=== PATIENT | male | born 1955 | race Caucasian/White ===

== ENCOUNTER 2018-07-17 07:09 | Emergency (ER) | payer BC, MEDICARE ==
[2018-07-17 07:38] VITALS: BP 133/86
--- NOTE | 2018-07-17 07:56 | UC ---
Skin Complaint HPI - HPI Summary HPI Summary: Patient presents to urgent care with a chief hives on his abdomen, scalp at hairline, and right posterior leg. Patient states his been approximately 2 weeks. Patient has a topical steroid ointment that he's use that has been helping. Patient states he also takes Benadryl help with itching. Patient states it's worse after showers. Patient denies fevers or chills. Patient states he had something similar happen approximately 6 month ago and saw his PCP. Unknown cause. Patient was working on the garden. No facial swelling difficulty swallowing shortness of breath or wheeze. Patient's medications reviewed this visit. - History of Current Complaint Chief Complaint: UCSkin Time Seen by Provider: 07/17/18 07:48 Stated Complaint: SKIN - RASH Hx Obtained From: Patient Pain Intensity: 0 - Allergy/Home Medications Allergies/Adverse Reactions: Allergies Allergy/AdvReac Type Severity Reaction Status Date / Time Sulfa (Sulfonamide Allergy Hives Verified 07/17/18 07:29 Antibiotics) Home Medications: Home Medications Desoximetasone 15 gm TP DAILY 07/17/18 [History Confirmed 07/17/18] Enalapril/Hydrochlorothiazide [Enalapril Maleate/Hydroch 10-25 mg] 1 tab PO DAILY 07/17/18 [History Confirmed 07/17/18] NIFEdipine ER TAB* [Procardia Xl TAB*] 90 mg PO DAILY 07/17/18 [History Confirmed 07/17/18] Simvastatin [Zocor] 40 mg PO DAILY 07/17/18 [History Confirmed 07/17/18] diphenhydrAMINE HCl [Benadryl Allergy 25 MG CAP] 1 - 2 tab PO Q4H PRN 07/17/18 [ History Confirmed 07/17/18] PMH/Surg Hx/FS Hx/Imm Hx Previously Healthy: Yes - Surgical History Surgical History: Yes Surgery Procedure, Year, and Place: knee - Family History Known Family History: Positive: Non-Contributory - Social History Occupation: Retired Lives: With Family Alcohol Use: None Substance Use Type: None Smoking Status (MU): Never Smoked Tobacco Review of Systems All Other Systems Reviewed And Are Negative: Yes Constitutional: Positive: Negative Skin: Positive: Rash Eyes: Positive: Negative ENT: Positive: Negative Respiratory: Positive: Negative Cardiovascular: Positive: Negative Gastrointestinal: Positive: Negative Physical Exam - Summary Physical Exam Summary: Vital Signs Reviewed: Yes A+Ox3, no distress Eyes: Conjunctiva Clear, MARCO. EOM intact and full ENT: Hearing grossly normal mmoist, uvula midline, no exudate, no erythema Neck: Positive: Supple Respiratory: Positive: No respiratory distress, No accessory muscle use + CTA throughout no w/r Cardiovascular: RRR nl s1, s2 no m/r CBT <2 sec abd soft + BS nt/nd no guarding, no distension Musculoskeletal Exam: HOBBS x 4 without difficulty Strength Intact, ROM Intact Neurological: Positive: Alert, + sensation throughout Psychological: Positive: Normal Response To Family Skin: Positive: Pt with apparent contact dermatitis - raised, macular patch right lower abd, posterior right upper leg. no lesions noted in hairline. + puritic No drainage, vesicles, non tender Triage Information Reviewed: Yes Vital Signs: Initial Vital Signs Temp 97.5 F 07/17/18 07:32 Pulse 79 07/17/18 07:32 Resp 16 07/17/18 07:32 BP 133/86 07/17/18 07:32 Pulse Ox 95 07/17/18 07:32 Course/Dx - Course Course Of Treatment: Patient with a rash on his posterior leg right lower abdomen for the last 2 weeks. Patient states Benadryl and steroid ointment helps. Worse after showers. Patient was working his garden preceding this. Patient without any respiratory complaints. Patient's vital signs reviewed. Patient with apparent contact dermatitis appearing rash on his abdomen posterior leg. Discussed with patient prednisone taper. Benadryl or Pepcid. Avoid heat and NSAIDs. Encourage patient to UC gentle soap and dry completely. Follow with PCP with dermatology. Referral information given. Patient has comfortable agreement with plan. Strict return precautions discussed. - Diagnoses Provider Diagnosis: Rash Discharge - Sign-Out/Discharge Documenting (check all that apply): Patient Departure All imaging exams completed and their final reports reviewed: No Studies - Discharge Plan Condition: Stable Disposition: HOME Prescriptions: predniSONE TAB* [Deltasone 20 MG TAB*] 20 mg PO DAILY #13 tab Patient Education Materials: Acute Rash (ED), Contact Dermatitis (ED) Referrals: [facility] [Provider Group] ([place]: [address] [place] [address] [phone]) Julian Santos MD [Primary Care Provider] - Additional Instructions: Take prednisone exactly as prescribed until gone - starting today - Okay to take Benadryl (1-2 tablets) every 6 hours as needed. This medication may cause drowsiness - do NOT drive, operate machinery or drink alcohol while taking Benadryl -Okay to take pepcid 20mg daily for itching -Avoid getting over heated (hot showers, hot tubs, exercise) for at least 48 hours - Try to avoid aspirin, NSAIDs (Motrin, Aleve, Naprosyn) for 2-3 days - Okay to apply cool compresses to the area of injury -Contact your doctor to schedule a follow-up appointment. you have also been given the contact information for a prototype technician. okay to call to schedule a follow-up appointment - okay to request the [place] office - Billing Disposition and Condition Condition: STABLE Disposition: Home
== END 2018-07-17 08:18 | disposition home or self-care (01) ==
LOC: UCCORT 07:09
DX: R21 Rash and other nonspecific skin eruption (principal); Z88.2 Allergy status to sulfonamides
CPT/HCPCS: 99212; G0463

== ENCOUNTER 2018-07-31 18:52 | Emergency (ER) | payer MEDICARE ==
[2018-07-31 19:33] VITALS: BP 132/85
--- NOTE | 2018-07-31 19:51 | UC ---
Skin Complaint HPI - HPI Summary HPI Summary: Pt presents with c/o "itchy" rash that began 2 weeks ago. Pt was seen here on and dx with contact dermatitis and given prednisone. Pt states rash improved with use of prednisone but has returned since discontinuing it. Pt denies any known contact to allergen. - History of Current Complaint Chief Complaint: UCSkin Time Seen by Provider: 07/31/18 19:30 Stated Complaint: SKIN CONCERN - RASH ALL OVER Hx Obtained From: Patient Onset/Duration: Sudden Onset, Lasting Weeks, Still Present Skin Exposure Onset/Duration: Weeks Ago Timing: Constant Onset Severity: Moderate Current Severity: Moderate Pain Intensity: 0 Location: Diffuse - low back, left posterior thigh, abdomen Character: Pruritus, Redness, Raised Aggravating Factor(s): Nothing Alleviating Factor(s): Antihistamines, Other - prednisone Associated Signs & Symptoms: Positive: Rash Related History: Possible Reaction to: Environmental Exposure - was gardening prior to initial outbreak of rash - Allergy/Home Medications Allergies/Adverse Reactions: Allergies Allergy/AdvReac Type Severity Reaction Status Date / Time Sulfa (Sulfonamide Allergy Hives Verified 07/31/18 19:33 Antibiotics) Home Medications: Home Medications Desoximetasone [Topicort] 0.25 % EX BID 07/31/18 [History Confirmed 07/31/18] PMH/Surg Hx/FS Hx/Imm Hx Previously Healthy: Yes Cardiovascular History: Cardiac Disease, Hypertension - Surgical History Surgical History: Yes Surgery Procedure, Year, and Place: knee - Family History Known Family History: Positive: Non-Contributory - Social History Occupation: Retired Lives: With Family Alcohol Use: None Substance Use Type: None Smoking Status (MU): Never Smoked Tobacco Have You Smoked in the Last Year: No - Immunization History Vaccination Up to Date: Yes Review of Systems All Other Systems Reviewed And Are Negative: Yes Constitutional: Positive: Negative Skin: Positive: Rash Eyes: Positive: Negative ENT: Positive: Negative Respiratory: Positive: Negative Cardiovascular: Positive: Negative Gastrointestinal: Positive: Negative Genitourinary: Positive: Negative Motor: Positive: Negative Neurovascular: Positive: Negative Musculoskeletal: Positive: Negative Neurological: Positive: Negative Psychological: Positive: Negative Is Patient Immunocompromised?: No Physical Exam Triage Information Reviewed: Yes Appearance: Well-Appearing Vital Signs: Initial Vital Signs Temp 98.8 F 07/31/18 19:25 Pulse 107 07/31/18 19:25 Resp 17 07/31/18 19:25 BP 132/85 07/31/18 19:25 Pulse Ox 97 07/31/18 19:25 Vital Signs Reviewed: Yes Eye Exam: Normal ENT Exam: Normal Dental Exam: Normal Neck exam: Normal Respiratory Exam: Normal Cardiovascular Exam: Normal Abdominal Exam: Other - rash on abdomen Musculoskeletal Exam: Normal Neurological Exam: Normal Psychological Exam: Normal Skin Exam: Other Skin: Positive: Rashes - diffuse pin prcik, raised mild erythematous rash, low back upper back, abdomen, and posteror left thigh. Pt also c/o nuring feeling at base of skull. no rash appreciated, skin at base of skull is mildly erythematous. Course/Dx - Differential Diagnoses - Skin Complaint Differential Diagnoses: Contact Dermatitis, Urticaria, Varicella Zoster - Diagnoses Provider Diagnosis: Rash and nonspecific skin eruption Discharge - Sign-Out/Discharge Documenting (check all that apply): Patient Departure All imaging exams completed and their final reports reviewed: No Studies - Discharge Plan Condition: Stable Disposition: HOME Prescriptions: Cetirizine* [ZyrTEC 10 MG TAB*] 10 mg PO DAILY #7 tab predniSONE TAB* [Deltasone 10 MG TAB*] 40 mg PO DAILY #20 tab Patient Education Materials: Acute Rash (ED) Referrals: Raul Vazquez MD [Medical Doctor] - As Soon As Possible Katie Eagle MD [Medical Doctor] - As Soon As Possible Shade Yusuf MD [Medical Doctor] - As Soon As Possible Carolyn Dyson [Medical Doctor] - As Soon As Possible Julian Santos MD [Primary Care Provider] - As Soon As Possible - Billing Disposition and Condition Condition: STABLE Disposition: Home
== END 2018-07-31 20:00 | disposition home or self-care (01) ==
LOC: UCCORT 18:52
DX: R21 Rash and other nonspecific skin eruption (principal); I11.9 Hypertensive heart disease without heart failure; Z88.2 Allergy status to sulfonamides
CPT/HCPCS: 99212; G0463

== ENCOUNTER 2018-08-08 14:45 | Emergency (ER) | payer MEDICARE ==
--- OUTSIDE RECORDS SUMMARY | 2018-08-08 15:00 | XMS REPORT | Continuity of Care Document ---
:1955 External Reference #:[id number] Author Name Gianna Tadeo Care Team Providers Name Role Phone Julian Santos III, MD Primary Care Physician Unavailable Payers Date Identification Numbers Payment Provider Subscriber Effective: Policy Number: [id number] Medicare Blue Ppo Alejandro Muniz 2018 PayID: [id number] [address] [place] [id number] Effective: 2010 Policy Number: [id number] [facility] Alejandro Muniz Expires: 2012 PayID: [id number] [facility] [id number] [place] [id number] Expires: 2010 Policy Number: [id number] [facility] Ppo Alejandro Muniz PayID: [id number] [facility] [id number] [place] [address] Advance Directives Description No Information Available Problems Active Problems Provider Date Benign essential hypertension Julian Santos M.D. Onset: 10/28/2010 Pure hypercholesterolemia uJlian Santos M.D. Onset: 10/28/2010 Impaired fasting glycaemia Julian Santos M.D. Onset: 10/28/2010 Allergic rhinitis Julian Santos M.D. Onset: 10/30/2011 Essential hypertension Julian Santos M.D. Onset: 01/28/2015 Family History Date Family Member(s) Observation Comments General Hypertension General Heart Disease General Diabetes Father Heart Disease Father Hypertension Father due to COPD () - age 73; (+) smoker. (+) CAD, NM age 65. (+) HTN Mother Hypertension Mother Heart Disease Mother Diabetes Mother due to Sudden () - age 73; cause uncertain. (+) HTN Mother due to Diabetes () First Brother Hypertension First Sister Hypertension Second Sister Hypertension Social History Type Date Description Comments Sex Unknown Marital Status Lives With Spouse Occupation [employer] work Tobacco Use Start: Unknown Never Smoked Cigarettes ETOH Use 10/29/2012 Denies alcohol use Tobacco Use Start: Unknown Patient has never smoked Recreational Drug Use Denies Drug Use Smoking Status Reviewed: 08/05/18 Patient has never smoked Exercise Type/Frequency Active at work Allergies, Adverse Reactions, Alerts Active Allergies Reaction Severity Comments Date Sulfa hives 01/15/2007 Bee Sting swelling and SOB 10/28/2010 Iodine rash 05/01/2011 Medications Active Medications SIG Qnty Indications Ordering Date Provider Desoximetasone apply once a day 60gm Julian Westfall 03/13/2018 0.25% Cream for up to 2 Monse Santos weeks as needed Nifedipine ER Osmotic Take 1 Tablet 90tabs Julian Westfall 04/26/2015 Release Daily Monse Santos 90mg Tablets ER 24HR Enalapril Take 1 Tablet 90tabs Julian Westfall 08/23/2010 Maleate/Hydrochlorothia Daily Monse Santos zide 10-25mg Tablets Simvastatin Take 1 Tablet AT 90tabs Julian Westfall 07/30/2007 40mg Tablets Bedtime Monse Santos Benadryl Allergy 1 tab by mouth Unknown 25mg every night at Tablets bedtime Fluad Unknown 0.5ml Ayleen Prednisone Rochelle Hsieh, 20mg Tablets MD Prednisone Unknown 10mg Tablets Cetirizine HCL take 1 tablet by Unknown 10mg Tablets mouth once daily Mucinex D Max Strength 1 tab a day as Unknown needed 120-1200mg Tablets ER 12HR Acetaminophen Extra as needed Unknown Strength 500mg Capsules History Medications Nifedipine ER Osmotic take 1 tablet by 30tabs Kari Vu, 02/15/2011 - mouth once daily Monse 04/26/2015 90mg Tablets ER 24HR Physical Therapy pt evaluation and 719.46 Julian Westfall 02/14/2010 - treatment for r Danielle, M.D. 08/26/2010 knee pain Desoximetasone apply bid prn 60GM Julian Westfall 07/27/2009 - 0.25% psoriasis Monse Santos 03/13/2018 Cream Vaseretic 1 po qd 90tabs Julian Westfall 07/22/2009 - 10-25mg Tablets Monse Santos 10/28/2010 Vaseretic 1 po qd 90tabs Julian Westfall 07/22/2008 - 10/12.5mg Monse Santos 07/22/2009 Tablets Vasoretic one po qd 90units Julian E. - 03/19 Monse Santos 07/22/2008 Procardia XL 1 PO qd 90tabs Julian E. - 90mg Tablets Monse Santos 02/15/2011 ER 24HR Lipitor 1Tab PO hs 30tabs Julian Katz. - 20mg Tablets Monse Santos 08/05/2007 Immunizations CPT Code Status Date Vaccine Lot # [id number] Given 03/13/2018 Pneumococcal Conjugate Vaccine 13 Valent For [id number] Intramuscular Use [id number] Given 01/15/2017 Influenza Virus Vaccine, Quadrivalent, Split, Preservative Free 56539 Given 01/14/2016 Influ Virus Vaccine, Quadrivalent, Split Virus, [place] [id number] Given 01/15/2015 Influenza Virus Vaccine, Quadrivalent, Split, Preservative Free [id number] Given 01/27/2014 Zoster (Zostavax) [id number] 55511 Given 01/16/2014 Flu Vaccine Split Virus Preservative Free For Indiv [id number] Older [id number] Given 02/14/2013 Fluzone High Dose 38078 Given 10/28/2010 Tdap - Tetanus/Diptheria/Acellular Pertussis [id number] Vital Signs Date Vital Result Comment 08/05/2018 3:47pm Height 65.5 inches 5'5.50" Weight 214.38 lb Heart Rate 90 /min BP Systolic 134 mmHg BP Diastolic 85 mmHg Body Temperature 96.0 F O2 % BldC Oximetry 96 % BMI (Body Mass Index) 35.1 kg/m2 03/13/2018 10:19am Height 65.5 inches 5'5.50" Weight 210.00 lb Heart Rate 98 /min BP Systolic Sitting 110 mmHg BP Diastolic Sitting 72 mmHg O2 % BldC Oximetry 94 % BMI (Body Mass Index) 34.4 kg/m2 03/30/2017 8:58am Height 65 inches 5'5" Weight 218.00 lb Heart Rate 90 /min BP Systolic Sitting 132 mmHg BP Diastolic Sitting 76 mmHg Respiratory Rate 20 /min Pain Level 0 BMI (Body Mass Index) 36.3 kg/m2 03/23/2017 8:49am Height 65 inches 5'5" Weight 218.38 lb Heart Rate 82 /min BP Systolic Sitting 120 mmHg BP Diastolic Sitting 66 mmHg Respiratory Rate 18 /min Body Temperature 98.2 F Pain Level 0 BMI (Body Mass Index) 36.3 kg/m2 02/01/2017 3:25pm Height 65 inches 5'5" Weight 213.00 lb Heart Rate 73 /min BP Systolic Sitting 124 mmHg BP Diastolic Sitting 80 mmHg Body Temperature 97.1 F O2 % BldC Oximetry 96 % BMI (Body Mass Index) 35.4 kg/m2 02/01/2016 3:06pm Height 66 inches 5'6" Weight 212.00 lb Heart Rate 84 /min BP Systolic Sitting 136 mmHg BP Diastolic Sitting 80 mmHg Body Temperature 98.7 F O2 % BldC Oximetry 97 % BMI (Body Mass Index) 34.2 kg/m2 01/28/2015 3:46pm Height 66 inches 5'6" Weight 208.00 lb Heart Rate 90 /min BP Systolic Sitting 130 mmHg BP Diastolic Sitting 86 mmHg Body Temperature 97.5 F O2 % BldC Oximetry 98 % BMI (Body Mass Index) 33.6 kg/m2 01/27/2014 3:37pm Height 66 inches 5'6" Weight 214.75 lb Heart Rate 95 /min BP Systolic Sitting 100 mmHg BP Diastolic Sitting 66 mmHg Body Temperature 97.7 F BMI (Body Mass Index) 34.7 kg/m2 08/12/2013 1:16pm Weight 209.50 lb Heart Rate 74 /min BP Systolic Sitting 124 mmHg BP Diastolic Sitting 68 mmHg Body Temperature 97.9 F 05/01/2013 3:56pm Weight 215.00 lb Heart Rate 90 /min BP Systolic Sitting 122 mmHg BP Diastolic Sitting 78 mmHg 10/29/2012 3:40pm Height 66 inches 5'6" Weight 210.00 lb Heart Rate 92 /min BP Systolic Sitting 124 mmHg BP Diastolic Sitting 78 mmHg BMI (Body Mass Index) 33.9 kg/m2 05/01/2012 2:53pm Height 65.75 inches 5'5.75" Weight 217.00 lb Heart Rate 90 /min BP Systolic Sitting 136 mmHg BP Diastolic Sitting 88 mmHg BMI (Body Mass Index) 35.3 kg/m2 10/30/2011 3:52pm Height 65.75 inches 5'5.75" Weight 217.50 lb Heart Rate 72 /min BP Systolic Sitting 120 mmHg BP Diastolic Sitting 84 mmHg BMI (Body Mass Index) 35.4 kg/m2 05/01/2011 3:47pm Height 66.5 inches 5'6.50" Weight 219.00 lb Heart Rate 80 /min BP Systolic Sitting 118 mmHg BP Diastolic Sitting 70 mmHg BMI (Body Mass Index) 34.8 kg/m2 11/25/2010 10:47am BP Systolic 110 mmHg BP Diastolic 76 mmHg 10/28/2010 10:26am Weight 218.00 lb Heart Rate 84 /min BP Systolic Sitting 116 mmHg BP Diastolic Sitting 70 mmHg 02/14/2010 4:54pm Height 67.5 inches 5'7.50" Weight 228.00 lb Heart Rate 80 /min BP Systolic Sitting 114 mmHg BP Diastolic Sitting 84 mmHg BMI (Body Mass Index) 35.2 kg/m2 07/27/2009 9:05am Height 67.5 inches 5'7.50" Weight 229.00 lb Heart Rate 68 /min BP Systolic Sitting 130 mmHg BP Diastolic Sitting 80 mmHg BMI (Body Mass Index) 35.3 kg/m2 01/20/2009 3:57pm Height 66.5 inches 5'6.50" Weight 227.00 lb Heart Rate 82 /min BP Systolic Sitting 132 mmHg BP Diastolic Sitting 80 mmHg BMI (Body Mass Index) 36.1 kg/m2 07/22/2008 9:06am Height 66.5 inches 5'6.50" Weight 230.00 lb Heart Rate 72 /min BP Systolic Sitting 112 mmHg BP Diastolic Sitting 70 mmHg BMI (Body Mass Index) 36.6 kg/m2 01/16/2008 4:03pm Height 66 inches 5'6" Weight 232.00 lb Heart Rate 80 /min BP Systolic Sitting 126 mmHg BP Diastolic Sitting 88 mmHg BMI (Body Mass Index) 37.4 kg/m2 07/17/2007 8:59am Height 66 inches 5'6" Weight 233.00 lb Heart Rate 72 /min BP Systolic Sitting 130 mmHg BP Diastolic Sitting 90 mmHg BMI (Body Mass Index) 37.6 kg/m2 01/15/2007 4:07pm Height 66 inches 5'6" Weight 234.00 lb Heart Rate 104 /min temp 98.1 BP Systolic Sitting 142 mmHg BP Diastolic Sitting 90 mmHg BMI (Body Mass Index) 37.8 kg/m2 Results Test Date Facility Test Result H/L Range Note Comp Metabolic Panel 03/14/2018 [facility] Sodium 138 mmol/L N 135-[address] [place] [address] [phone] Potassium 3.9 mmol/L N 3.5-5.0 Chloride 103 mmol/L N 101-111 Co2 Carbon Dioxide 28 mmol/L N 22-32 Anion Gap 7 mmol/L N 2-11 Glucose 113 mg/dL High 70-100 Blood Urea Nitrogen 19 mg/dL N 6-24 Creatinine 0.90 mg/dL N 0.67-1.17 BUN/Creatinine Ratio 21.1 High 8-20 Calcium 9.3 mg/dL N 8.6-10.3 Total Protein 6.8 g/dL N 6.4-8.9 Albumin 4.2 g/dL N 3.2-5.2 Globulin 2.6 g/dL N 2-4 Albumin/Globulin Ratio 1.6 N 1-3 Total Bilirubin 0.60 mg/dL N 0.2-1.0 Alkaline Phosphatase 68 U/L N 34-104 Alt 13 U/L N 7-52 Ast 14 U/L N 13-39 Egfr Non- 84.7 >60 Egfr 102.5 >60 1 Lipid Profile 03/14/2018 [facility] Triglycerides 213 mg/dL 2 (Trig/Chol/HDL) [address] [place] [address] [phone] Cholesterol 149 mg/dL 3 HDL Cholesterol 57.4 mg/dL 4 LDL Cholesterol 49 mg/dL 5 Laboratory test 03/14/2018 [facility] Hemoglobin A1c 6.0 % High 4.0-5.6 [address] (Glyco HGB) [place] [address] [phone] Comp Metabolic 01/25/2017 [facility] Sodium 138 N 133-[address] mmol/[place] [address] [phone] Potassium 4.2 mmol/L N 3.5-5.0 Chloride 103 mmol/L N 101-111 Co2 Carbon Dioxide 31 mmol/L N 22-32 Anion Gap 4 mmol/L N 2-11 Glucose 106 mg/dL High 70-100 Blood Urea Nitrogen 17 mg/dL N 6-24 Creatinine 0.93 mg/dL N 0.67-1.17 BUN/Creatinine Ratio 18.3 N 8-20 Calcium 9.7 mg/dL N 8.6-10.3 Total Protein 6.9 g/dL N 6.4-8.9 Albumin 4.1 g/dL N 3.2-5.2 Globulin 2.8 g/dL N 2-4 Albumin/Globulin Ratio 1.5 N 1-3 Total Bilirubin 0.60 mg/dL N 0.2-1.0 Alkaline Phosphatase 59 U/L N 34-104 Alt 14 U/L N 7-52 Ast 18 U/L N 13-39 Egfr Non- 81.8 N >60 Egfr 105.2 N >60 7 Lipid Profile 01/25/2017 [facility] Triglycerides 132 mg/dL N 8 (Trig/Chol/HDL) [address] [place] [address] [phone] Cholesterol 139 mg/dL N 9 HDL Cholesterol 61.1 mg/dL N 10 LDL Cholesterol 52 mg/dL N 11 Laboratory test 01/25/2017 [facility] Hemoglobin A1c 5.9 % High 4.0-5.[address] (Glyco HGB) [place] [address] [phone] Basic Metabolic 01/24/2016 [facility] Sodium 138 N 133-[address] mmol/[place] [address] [phone] Potassium 4.2 mmol/L N 3.5-5.0 Chloride 102 mmol/L N 101-111 Co2 Carbon Dioxide 29 mmol/L N 22-32 Anion Gap 7 mmol/L N 2-11 Glucose 106 mg/dL High 70-100 Blood Urea Nitrogen 16 mg/dL N 6-24 Creatinine 0.91 mg/dL N 0.67-1.17 BUN/Creatinine Ratio 17.6 N 8-20 Calcium 9.4 mg/dL N 8.6-10.3 Egfr Non- 84.1 N >60 Egfr 108.2 N >60 13 Laboratory test 01/24/2016 [facility] Hemoglobin A1c 6.1 % High Less than [address] (Glyco HGB) 6.[address] [place] [address] [phone] Comp Metabolic 01/29/2015 [facility] Sodium 137 N 133-[address] mmol/[place] [address] [phone] Potassium 3.8 mmol/L N 3.5-5.0 Chloride 101 mmol/L N 101-111 Co2 Carbon Dioxide 26 mmol/L N 22-32 Anion Gap 10 mmol/L N 2-11 Glucose 117 mg/dL High 70-100 Blood Urea Nitrogen 16 mg/dL N 6-24 Creatinine 0.96 mg/dL N 0.67-1.17 BUN/Creatinine Ratio 16.7 N 8-20 Calcium 9.5 mg/dL N 8.6-10.3 Total Protein 6.9 g/dL N 6.4-8.9 Albumin 4.3 g/dL N 3.2-5.2 Globulin 2.6 g/dL N 2-4 Albumin/Globulin Ratio 1.7 N 1-3 Total Bilirubin 0.50 mg/dL N 0.2-1.0 Alkaline Phosphatase 76 U/L N 34-104 Alt 15 U/L N 7-52 Ast 19 U/L N 13-39 Egfr Non- 79.4 N >60 Egfr 102.1 N >60 15 Lipid Profile 01/29/2015 [facility] Triglycerides 90 mg/dL N 16 (Trig/Chol/HDL) [address] [place] [address] [phone] Cholesterol 141 mg/dL N 17 HDL Cholesterol 61.8 mg/dL N 18 LDL Cholesterol 61 mg/dL N 19 Laboratory test 01/28/2015 [facility] Hemoglobin A1c 5.5 5-7 finding Laboratory test 01/27/2014 [facility] Hemoglobin A1c 5.9 5-7 finding Laboratory test 10/23/2012 [facility] Hemoglobin A1c 5.8 % Less than [address] [place] [address] [phone] Lipid Profile 10/23/2012 [facility] Triglycerides 160 mg/dL 40-200 (Trig/Chol/HDL) [address] [place] [address] [phone] Cholesterol 153 mg/dL Less than 200 HDL Cholesterol 49 mg/dL 40-60 21 Cholesterol/HDL Ratio 3.1 Average 1-4.44 LDL Cholesterol 72.0 Less Than 100 22 Comp Metabolic Panel 10/23/2012 [facility] Sodium 136 mmol/L 133-[address] [place] [address] [phone] Potassium 4.4 mmol/L 3.5-5.0 Chloride 103 mmol/L 101-111 Co2 Carbon Dioxide 27.0 mmol/L 22-32 Anion Gap 6.0 mmol/L 2-11 Glucose 110 mg/dL High 70-100 Blood Urea Nitrogen 17 mg/dL 6-24 Creatinine 1.10 mg/dL 0.50-1.40 BUN/Creatinine Ratio 15.5 8-20 Calcium 9.3 mg/dL 8.1-9.9 Total Protein 6.6 g/dL 6.2-8.1 Albumin 4.0 g/dL 3.6-5.4 Globulin 2.6 g/dL 2-4 Albumin/Globulin Ratio 1.5 1-3 Total Bilirubin 0.7 mg/dL 0.4-1.5 Alkaline Phosphatase 69 U/L 30-110 Alt 23 U/L 14-54 Ast 21 U/L 12-42 Egfr Non- 68.5 >60 Egfr 88.1 >60 23 CBC Auto Diff 10/23/2012 [facility] White Blood 6.4 10^3/uL 4.8-10.[address] [place] [address] [phone] Red Blood Count 5.11 10^6/uL 4.0-5.4 Hemoglobin 16.2 g/dL 14.0-18.0 Hematocrit 46 % 42-52 Mean Corpuscular Volume 90 fL 80-94 Mean Corpuscular Hemoglobin 32 pg High 27-31 Mean Corpuscular HGB Conc 35 g/dL 31-36 Red Cell Distribution Width 13 % 10.5-15 Platelet Count 234 10^3/uL 150-450 Mean Platelet Volume 8 um3 7.4-10.4 Abs Neutrophils 3.5 10^3/uL 1.5-7.7 Abs Lymphocytes 2.0 10^3/uL 1.0-4.8 Abs Monocytes 0.6 10^3/uL 0-0.8 Abs Eosinophils 0.3 10^3/uL 0-0.6 Abs Basophils 0.1 10^3/uL 0-0.2 Abs Nucleated RBC 0 10^3/uL Granulocyte % 54.1 % 38-83 Lymphocyte % 30.9 % 25-47 Monocyte % 9.9 % High 1-9 Eosinophil % 4.0 % 0-6 Basophil % 1.1 % 0-2 Nucleated Red Blood Cells % 0.1 CBC Auto Diff 10/23/2011 [facility] White Blood 6.8 CUMM 4.8- 10.[address] [place] [address] [phone] Red Cell Count 4.92 CUMM 4.6-6.2 Hemoglobin 15.6 g/dL 14.0-18.0 Hematocrit 44 % 42-52 Mean Corpuscular Volume 90 um3 80-94 Mean Corpuscular Hemoglob 32 pg High 27-31 Mean Corpuscular HGB Cone 35 g/dL 32-36 Redcell Distribution WDTH 13 % 10.5-15 Platelet Count 222 CUMM 150-450 Mean Platelet Volume 7.9 um3 7.4-10.4 Gran % 61.1 % 38-83 Lymph % 26.0 % 20-45 Mononuclear % 7.3 % 1-9 Eosinophil % 5.1 % 0-6 Basophil % 0.5 % 0-2 Abs Lymphs 1.8 1.0-4.8 Abs Mononuclear 0.5 0-0.8 Absolute Neutrophil Count 4.1 1.5-7.7 Abs Eosinophils 0.3 0-0.6 Abs Basophils 0 0-0.2 Comp Metabolic Panel 10/23/2011 [facility] Sodium 137 mmol/L 135-[address] [place] [address] [phone] Potassium 4.0 mmol/L 3.5-5.0 Chloride 104 mmol/L 101-111 Co2 (Carbon Dioxide) 28.0 mmol/L 22-32 Anion Gap 5.0 mmol/L 2-11 24 Glucose 105 mg/dL High 70-100 BUN 15 mg/dL 6-24 Creatinine 0.9 mg/dL 0.50-1.40 One Over Creatinine 1.11 BUN/Creatinine Ratio 16.7 8-20 Calcium 9.1 mg/dL 8.1-9.9 Total Protein 6.4 GM/DL 6.2-8.1 Albumin 3.9 GM/DL 3.6-5.4 Globulin 2.5 GM/DL 2-4 Albumin/Globulin Ratio 1.6 1-3 Bilirubin Total 0.7 mg/dL 0.4-1.5 25 Alkaline Phosphatase 69 U/L 39-117 Alt (SGPT) 15 U/L Low 17-63 Ast (Sgot) 18 U/L 12-42 eGFR Non- 86.7 > 60 eGFR 111.5 > 60 26 Lipid Profile 10/23/2011 [facility] Triglyceride 92 mg/dL 40- 200 (Trig/Chol/HDL) [address] [place] [address] [phone] Cholesterol 159 mg/dL Less Than 200 27 High Density Lipoprotein 52 mg/dL 40-60 28 Cholesterol/HDL Ratio 3.06 AVERAGE 1-4.97 Low Density Lipoprotein 89 mg/dL Less Than 100 29 Laboratory test 10/23/2011 [facility] Hemoglobin A1c 5.9 % Less Than [address] [place] [address] [phone] PSA 1.78 NG/ML 0-4 31 Laboratory test 10/28/2010 [facility] Hemoglobin A1c 5.9 5-[address] Santos[facility] 10/17/2010 [facility] TSH 1.22 MIU/ML 0.34- 5.60 Panel [address] [place] [address] [phone] Comp Metabolic 10/17/2010 [facility] Sodium 138 mmol/L 135- 145 Panel [address] [place] [address] [phone] Potassium 3.7 mmol/L 3.5-5.0 Chloride 105 mmol/L 101-111 Co2 (Carbon Dioxide) 28.0 mmol/L 22-32 Anion Gap 5.0 mmol/L 2-11 32 Glucose 112 mg/dL High 70-100 BUN 11 mg/dL 6-24 Creatinine 0.90 mg/dL 0.50-1.40 One Over Creatinine 1.10 BUN/Creatinine Ratio 12.2 8-20 Calcium 8.7 mg/dL 8.1-9.9 Total Protein 6.2 GM/DL 6.2-8.1 Albumin 4.0 GM/DL 3.6-5.4 Globulin 2.2 GM/DL 2-4 Albumin/Globulin Ratio 1.8 1-3 Bilirubin Total 0.5 mg/dL 0.4-1.5 33 Alkaline Phosphatase 76 U/L 39-117 Alt (SGPT) 20 U/L 17-63 Ast (Sgot) 22 U/L 12-42 eGFR Non- 87.0 > 60 eGFR 111.9 > 60 34 Lipid Profile 10/17/2010 [facility] Triglyceride 80 mg/dL 40- 200 (Trig/Chol/HDL) [address] [place] [address] [phone] Cholesterol 139 mg/dL Less Than 200 35 High Density Lipoprotein 51 mg/dL 40-60 36 Cholesterol/HDL Ratio 2.73 AVERAGE 1-4.97 Low Density Lipoprotein 72 mg/dL Less Than 100 37 CBC With 10/17/2010 [facility] White Blood 5.8 CUMM 4.8-10.8 Electronic Diff [address] [place] [address] [phone] Red Cell Count 4.85 CUMM 4.6-6.2 Hemoglobin 14.9 g/dL 14.0-18.0 Hematocrit 45 % 42-52 Mean Corpuscular Volume 92 um3 80-94 Mean Corpuscular Hemoglob 31 pg 27-31 Mean Corpuscular HGB Cone 33 g/dL 32-36 Redcell Distribution WDTH 13 % 10.5-15 Platelet Count 213 CUMM 150-450 Mean Platelet Volume 7.9 um3 7.4-10.4 Gran % 62.1 % 38-83 Lymph % 27.0 % 25-47 Mononuclear % 7.6 % 1-9 Eosinophil % 2.4 % 0-6 Basophil % 0.9 % 0-2 Abs Lymphs 1.6 1.0-4.8 Abs Mononuclear 0.4 0-0.8 Absolute Neutrophil Count 3.6 1.5-7.7 Abs Eosinophils 0.1 0-0.6 Abs Basophils 0.1 0-0.2 Laboratory test 02/14/2010 [facility] Hemoglobin A1c 5.8 5-[address] Santos[facility] 07/20/2009 [facility] TSH 1.24 MIU/ML 0.34- 5.[address] [place] [address] [phone] CMP Panel 07/20/2009 [facility] Sodium 138 mmol/L 135-[address] [place] [address] [phone] Potassium 4.3 mmol/L 3.5-5.0 Chloride 103 mmol/L 101-111 Co2 (Carbon Dioxide) 27.0 mmol/L 22-32 Anion Gap 8.0 mmol/L 2-11 38 Glucose 115 mg/dL High 70-100 39 BUN 19 mg/dL 6-24 Creatinine 0.90 mg/dL 0.50-1.40 One Over Creatinine 1.10 BUN/Creatinine Ratio 21.1 High 8-20 Calcium 9.3 mg/dL 8.1-9.9 40 Total Protein 6.7 GM/DL 6.2-8.1 Albumin 4.1 GM/DL 3.6-5.4 Globulin 2.6 GM/DL 2-4 Albumin/Globulin Ratio 1.6 1-3 Bilirubin Total 0.6 mg/dL 0.4-1.5 41 Alkaline Phosphatase 63 U/L 39-117 Alt (SGPT) 20 U/L 17-63 Ast (Sgot) 20 U/L 12-42 eGFR Non- 92.8 > 60 eGFR 112.3 > 60 42 Lipid Panel 07/20/2009 [facility] Triglyceride 113 mg/dL 40- 200 [address] [place] [address] [phone] Cholesterol 163 mg/dL Less Than 200 43 High Density Lipoprotein 50 mg/dL 40-60 44 Cholesterol/HDL Ratio 3.26 AVERAGE 1-4.97 Low Density Lipoprotein 90 mg/dL Less Than 100 45 Laboratory test 07/20/2009 [facility] PSA Screening 1.55 NG/ML 0-4 46 finding [address] [place] [address] [phone] Hemoglobin A1c 5.9 % Less Than 6.0 47 CBC W/Manual Diff 07/20/2009 [facility] White Blood 5.6 CUMM 4.8-10.[address] [place] [address] [phone] Red Cell Count 5.16 CUMM 4.6-6.2 Hemoglobin 16.1 g/dL 14.0-18.0 Hematocrit 47 % 42-52 Mean Corpuscular Volume 92 um3 80-94 Mean Corpuscular Hemoglob 31 pg 27-31 Mean Corpuscular HGB Cone 34 g/dL 32-36 Redcell Distribution WDTH 12 % 10.5-15 Platelet Count 228 CUMM 150-450 Mean Platelet Volume 7.6 um3 7.4-10.4 Polysegmented Neutrophil 53 % 38-83 Lymphocyte 38 % 25-47 Monocyte 7 % 0-13 Eosenophil 1 % 0-6 Basophil 1 % 0-2 Absolute Neutrophil Count 2.9 Anisocytosis SLIGHT Basic Metabolic Panel 01/22/2009 [facility] Sodium 138 mmol/L 135-[address] [place] [address] [phone] Potassium 4.2 mmol/L 3.5-5.0 Chloride 105 mmol/L 101-111 Co2 (Carbon Dioxide) 28.0 mmol/L 22-32 Anion Gap 5.0 mmol/L 2-11 48 Glucose 101 mg/dL High 70-100 49 BUN 18 mg/dL 6-24 Creatinine 1.00 mg/dL 0.50-1.40 One Over Creatinine 1.00 BUN/Creatinine Ratio 18.0 8-20 Calcium 9.3 mg/dL 8.1-9.9 50 eGFR Non- 82.2 > 60 eGFR 99.4 > 60 51 Laboratory test 01/22/2009 [facility] Hemoglobin A1c 6.2 % High Less Than [address] [place] [address] [phone] Comp Metabolic 07/22/2008 [facility] Sodium 140 135-145 [address] mmol/[place] [address] [phone] Potassium 4.6 mmol/L 3.5-5.0 Chloride 105 mmol/L 101-111 Co2 (Carbon Dioxide) 29.0 mmol/L 22-32 Anion Gap 6.0 mmol/L 2-11 54 Glucose 113 mg/dL High 70-100 55 BUN 18 mg/dL 6-24 Creatinine 0.90 mg/dL 0.50-1.40 One Over Creatinine 1.10 BUN/Creatinine Ratio 20.0 8-20 Calcium 9.5 mg/dL 8.1-9.9 56 Total Protein 6.7 GM/DL 6.2-8.1 Albumin 4.1 GM/DL 3.6-5.4 Globulin 2.6 GM/DL 2-4 Albumin/Globulin Ratio 1.6 1-3 Bilirubin Total 0.8 mg/dL 0.4-1.5 Alkaline Phosphatase 78 U/L 39-117 Alt (SGPT) 21 U/L 17-63 Ast (Sgot) 25 U/L 12-42 Lipid Profile 07/22/2008 [facility] Triglyceride 128 mg/dL 40 -200 (Trig/Chol/HDL) [address] [place] [address] [phone] Cholesterol 159 mg/dL Less Than 200 57 High Density Lipoprotein 46 mg/dL 40-60 58 Cholesterol/HDL Ratio 3.46 AVERAGE 1-4.97 Low Density Lipoprotein 87 mg/dL Less Than 100 59 Laboratory test 07/22/2008 [facility] Hemoglobin A1c 6.9 % High <6.0 [address] [place] [address] [phone] CBC With 07/22/2008 [facility] White Blood 5.9 CUMM 4.8-10.8 Electronic Diff [address] [place] [address] [phone] Red Cell Count 5.28 CUMM 4.6-6.2 Hemoglobin 16.2 g/dL 14.0-18.0 Hematocrit 47 % 42-52 Mean Corpuscular Volume 89 um3 80-94 Mean Corpuscular Hemoglob 31 pg 27-31 Mean Corpuscular HGB Cone 34 g/dL 32-36 Redcell Distribution WDTH 13 % 10.5-15 Platelet Count 233 CUMM 150-450 Mean Platelet Volume 7.8 um3 7.4-10.4 Gran % 47.6 % 38-83 Lymph % 37.9 % 25-47 Mononuclear % 11.4 % High 1-9 Eosinophil % 2.6 % 0-6 Basophil % 0.5 % 0-2 Abs Lymphs 2.2 1.0-4.8 Abs Mononuclear 0.7 0-0.8 Absolute Neutrophil Count 2.8 1.5-7.7 Abs Eosinophils 0.2 0-0.6 Abs Basophils 0 0-0.2 Laboratory test 07/22/2008 [facility] TSH 0.88 MIU/ML 0.34- 5.60 finding [address] [place] [address] [phone] PSA Screening 1.52 NG/ML 0-4 61 Laboratory test finding 01/20/2008 [facility] Alt (SGPT) 20 U/L 17-63 [address] [place] [address] [phone] Ast (Sgot) 22 U/L 12-42 Lipid Profile 01/20/2008 [facility] Triglyceride 119 mg/dL 40 -200 (Trig/Chol/HDL) [address] [place] [address] [phone] Cholesterol 147 mg/dL Less Than 200 62 High Density Lipoprotein 50 mg/dL 40-60 63 Cholesterol/HDL Ratio 2.94 AVERAGE 1-4.97 Low Density Lipoprotein 73 mg/dL Less Than 100 64 Basic Metabolic Panel 01/20/2008 [facility] Sodium 136 mmol/L 135-145 [address] [place] [address] [phone] Potassium 3.9 mmol/L 3.5-5.0 Chloride 102 mmol/L 101-111 Co2 (Carbon Dioxide) 26.0 mmol/L 22-32 Anion Gap 8.0 mmol/L 2-11 65 Glucose 97 mg/dL 70-100 66 BUN 15 mg/dL 6-24 Creatinine 0.90 mg/dL 0.50-1.40 One Over Creatinine 1.10 BUN/Creatinine Ratio 16.7 8-20 Calcium 8.8 mg/dL 8.1-9.9 67 Laboratory test 01/20/2008 [facility] Hemoglobin A1c 5.9 % < 6.0 68 finding 101 [place] [address] [phone] CBC With 07/17/2007 [facility] White Blood 6.8 CUMM 4.8-10.8 69 Electronic Diff [address] [place] [address] [phone] Abs Basophils 0.1 0-0.2 Abs Eosinophils 0.1 0-0.6 Absolute Neutrophil Count 3.2 1.5-7.7 Abs Lymphs 2.6 1.0-4.8 Abs Mononuclear 0.9 High 0-0.8 Basophil % 0.7 % 0-2 Hematocrit 47 % 42-52 Hemoglobin 16.1 g/dL 14.0-18.0 Eosinophil % 1.9 % 0-6 Gran % 46.5 % 38-83 Lymph % 38.1 % 20-45 Mean Corpuscular HGB Cone 35 g/dL 32-36 Mean Corpuscular Hemoglob 30 pg 27-31 Mean Corpuscular Volume 88 um3 80-94 Mean Platelet Volume 8.2 um3 7.4-10.4 Mononuclear % 12.8 % High 1-9 Platelet Count 255 CUMM 150-450 Red Cell Count 5.31 CUMM 4.6-6.2 Redcell Distribution WDTH 13 % 10.5-15 Comp Metabolic Panel 07/17/2007 [facility] One Over Creatinine 0.[address] [place] [address] [phone] Anion Gap 10.0 mmol/L 2-11 70 Albumin/Globulin Ratio 1.4 1-3 Albumin 4.2 GM/DL 3.6-5.4 Alkaline Phosphatase 82 U/L 39-117 Alt (SGPT) 26 U/L 17-63 Ast (Sgot) 29 U/L 12-42 BUN 15 mg/dL 6-24 Calcium 9.6 mg/dL 8.7-10.2 Chloride 102 mmol/L 101-111 Co2 (Carbon Dioxide) 30.0 mmol/L 22-32 Globulin 2.9 GM/DL 2-4 Glucose 103 mg/dL 70-105 Potassium 4.9 mmol/L 3.5-5.0 Sodium 142 mmol/L 135-145 Bilirubin Total 1.0 mg/dL 0.4-1.5 Total Protein 7.1 GM/DL 6.2-8.1 BUN/Creatinine Ratio 13.6 8-20 Creatinine 1.1 mg/dL 0.5-1.4 Lipid Profile 07/17/2007 [facility] Cholesterol/HDL 3.89 1- 4.97 (Trig/Chol/HDL) [address] [place] [address] [phone] Cholesterol 175 mg/dL Less Than 200 71 Triglyceride 178 mg/dL 40-200 High Density Lipoprotein 45 mg/dL 40-60 72 Low Density Lipoprotein 94 mg/dL Less Than 100 73 Laboratory test 07/17/2007 [facility] PSA Screening 1.15 NG/ML 0-4 [address] [place] [address] [phone] TSH 0.86 MIU/ML 0.34-5.60 1 Because ethnic data is not always readily available, this report includes an eGFR for both -Americans and non- Americans. The National Kidney Disease Education Program (NKDEP) does not endorse the use of the MDRD equation for patients that are not between the ages of 18 and 70, are , have extremes of body size, muscle mass, or nutritional status, or are non- or non-. According to the National Kidney Foundation, irrespective of diagnosis, the stage of the disease is based on the level of kidney function: Stage Description GFR(mL/min/1.73 m(2)) 1 Kidney damage with normal or decreased GFR 90 2 Kidney damage with mild decrease in GFR 60-89 3 Moderate decrease in GFR 30-59 4 Severe decrease in GFR 15-29 5 Kidney failure <15 (or dialysis) 2 Desirable: <150 Borderline High: 150-199 High: 200-499 Very High: >500 3 Desirable: <200 Borderline High: 200-239 High: >239 4 Low: <40 Desirable: 40-60 High: >60 5 Desirable: <100 Near Optimal: 100-129 Borderline High: 130-159 High: 160-189 Very High: >189 6 Therapeutic target for the treatment of diabetes mellitus patients is <7% HBA1C, and in selective patients <6.0%. Please refer to [employer] diabetic care guidelines for further information. 7 Because ethnic data is not always readily available, this report includes an eGFR for both -Americans and non- Americans. The National Kidney Disease Education Program (NKDEP) does not endorse the use of the MDRD equation for patients that are not between the ages of 18 and 70, are , have extremes of body size, muscle mass, or nutritional status, or are non- or non-. According to the National Kidney Foundation, irrespective of diagnosis, the stage of the disease is based on the level of kidney function: Stage Description GFR(mL/min/1.73 m(2)) 1 Kidney damage with normal or decreased GFR 90 2 Kidney damage with mild decrease in GFR 60-89 3 Moderate decrease in GFR 30-59 4 Severe decrease in GFR 15-29 5 Kidney failure <15 (or dialysis) 8 Desirable: <150 Borderline High: 150-199 High: 200-499 Very High: >500 9 Desirable: <200 Borderline High: 200-239 High: >239 10 Low: <40 Desirable: 40-60 High: >60 11 Desirable: <100 Near Optimal: 100-129 Borderline High: 130-159 High: 160-189 Very High: >189 12 Therapeutic target for the treatment of diabetes mellitus patients is <7% HBA1C, and in selective patients <6.0%. Please refer to [employer] diabetic care guidelines for further information. 13 Because ethnic data is not always readily available, this report includes an eGFR for both -Americans and non- Americans. The National Kidney Disease Education Program (NKDEP) does not endorse the use of the MDRD equation for patients that are not between the ages of 18 and 70, are , have extremes of body size, muscle mass, or nutritional status, or are non- or non-. According to the National Kidney Foundation, irrespective of diagnosis, the stage of the disease is based on the level of kidney function: Stage Description GFR(mL/min/1.73 m(2)) 1 Kidney damage with normal or decreased GFR 90 2 Kidney damage with mild decrease in GFR 60-89 3 Moderate decrease in GFR 30-59 4 Severe decrease in GFR 15-29 5 Kidney failure <15 (or dialysis) 14 Therapeutic target for the treatment of diabetes Mellitus patients is <7% HBA1C, and in selective patients <6.0%.Please refer to [employer] Diabetic care guidelines for further information. 15 Because ethnic data is not always readily available, this report includes an eGFR for both -Americans and non- Americans. The National Kidney Disease Education Program (NKDEP) does not endorse the use of the MDRD equation for patients that are not between the ages of 18 and 70, are , have extremes of body size, muscle mass, or nutritional status, or are non- or non-. According to the National Kidney Foundation, irrespective of diagnosis, the stage of the disease is based on the level of kidney function: Stage Description GFR(mL/min/1.73 m(2)) 1 Kidney damage with normal or decreased GFR 90 2 Kidney damage with mild decrease in GFR 60-89 3 Moderate decrease in GFR 30-59 4 Severe decrease in GFR 15-29 5 Kidney failure <15 (or dialysis) 16 Desirable <150 Borderline high 150-199 High 200-499 Very High >500 17 Desirable <200 Borderline high 200-239 High >239 18 Low <40 Desirable: 40-60 High: >60 19 Desirable: <100 mg/dL Near Optimal: 100-129 mg/dL Borderline High: 130-159 mg/dL High: 160-189 mg/dL Very High: >189 mg/dL 20 Therapeutic target for the treatment of diabetes Mellitus patients is <7% HBA1C, and in selective patients <6.0%.Please refer to [employer] Diabetic care guidelines for further information. 21 HDL Interpretation: Undesirable: High Risk: Less than 40 mg/dL Desirable: Low Risk: Greater than 60 mg/dL 22 LDL Interpretation: Low Risk Optimal Level: LDL Less than 100 mg/dL Near or Above Optimal: LDL 100-129 mg/dL Borderline High Risk: LDL 130-159 mg/dL High Risk: LDL 160-189 mg/dL Very High Risk: LDL Greater than 189 mg/dL 23 Because ethnic data is not always readily available, this report includes an eGFR for both -Americans and non- Americans. The National Kidney Disease Education Program (NKDEP) does not endorse the use of the MDRD equation for patients that are not between the ages of 18 and 70, are , have extremes of body size, muscle mass, or nutritional status, or are non- or non-. According to the National Kidney Foundation, irrespective of diagnosis, the stage of the disease is based on the level of kidney function: Stage Description GFR(mL/min/1.73 m(2)) 1 Kidney damage with normal or decreased GFR 90 2 Kidney damage with mild decrease in GFR 60-89 3 Moderate decrease in GFR 30-59 4 Severe decrease in GFR 15-29 5 Kidney failure <15 (or dialysis) 24 Anion gap measurement may be of limited value in the presence of any alkalosis, especially in a combined acid base disorder. . 25 A metabolite of Naproxen, O-desmethylnaproxen, has been shown to interfere with the Jendrassik-Tiburones method for measuring total bilirubin. Samples from patients who have taken Naproxen have shown spurious elevation in total bilirubin levels. 26 Because ethnic data is not always readily available, this report includes an eGFR for both -Americans and non- Americans. The National Kidney Disease Education Program (NKDEP) does not endorse the use of the MDRD equation for patients that are not between the ages of 18 and 70, are , have extremes of body size, muscle mass, or nutritional status, or are non- or non-. According to the National Kidney Foundation, irrespective of diagnosis, the stage of the disease is based on the level of kidney function: Stage Description GFR(mL/min/1.73 m(2)) 1 Kidney damage with normal or decreased GFR 90 2 Kidney damage with mild decrease in GFR 60-89 3 Moderate decrease in GFR 30-59 4 Severe decrease in GFR 15-29 5 Kidney failure <15 (or dialysis) 27 CHOLESTEROL INTERPRETATION: Desirable: Less than 200 MG/DL Borderline-High Risk: 200-239 MG/DL High-Risk: 240 MG/DL and over 28 HDL INTERPRETATION: Undesirable: High Risk: Less than 40 MG/DL Desirable: Low Risk: Greater than 60 MG/DL 29 LDL INTERPRETATION: Low Risk Optimal Level: LDL Less than 100 MG/DL Near or Above Optimal: LDL 100-129 MG/DL Borderline High Risk: LDL 130-159 MG/DL High Risk: LDL 160-189 MG/DL Very High Risk: LDL Greater than 189 MG/DL 30 THERAPEUTIC TARGET FOR THE TREATMENT OF DIABETES MELLITUS PATIENTS IS <7% HBA1C, AND IN SELECTIVE PATIENTS <6.0%. PLEASE REFER TO [employer] DIABETIC CARE GUIDELINES FOR FURTHER INFORMATION. 31 * SERUM LEVELS OF PSA MEASURED USING THE [employer] ACCESS HYBRITECH IMMUNOASSAY SHOULD NOT BE INTERPRETED ABSOLUTE EVIDENCE OF THE PRESENCE OR ABSENCE OF DISEASE. THE PSA VALUE SHOULD BE USED IN CONJUNCTION WITH OTHER PERTINENT CLINICAL DIAGNOSTIC PROCEDURES. The values obtained with different assay methods or kits cannot be used interchangeably. 32 Anion gap measurement may be of limited value in the presence of any alkalosis, especially in a combined acid base disorder. . 33 A metabolite of Naproxen, O-desmethylnaproxen, has been shown to interfere with the Jendrassik-Tiburones method for measuring total bilirubin. Samples from patients who have taken Naproxen have shown spurious elevation in total bilirubin levels. 34 Because ethnic data is not always readily available, this report includes an eGFR for both -Americans and non- Americans. The National Kidney Disease Education Program (NKDEP) does not endorse the use of the MDRD equation for patients that are not between the ages of 18 and 70, are , have extremes of body size, muscle mass, or nutritional status, or are non- or non-. According to the National Kidney Foundation, irrespective of diagnosis, the stage of the disease is based on the level of kidney function: Stage Description GFR(mL/min/1.73 m(2)) 1 Kidney damage with normal or decreased GFR 90 2 Kidney damage with mild decrease in GFR 60-89 3 Moderate decrease in GFR 30-59 4 Severe decrease in GFR 15-29 5 Kidney failure <15 (or dialysis) 35 CHOLESTEROL INTERPRETATION: Desirable: Less than 200 MG/DL Borderline-High Risk: 200-239 MG/DL High-Risk: 240 MG/DL and over 36 HDL INTERPRETATION: Undesirable: High Risk: Less than 40 MG/DL Desirable: Low Risk: Greater than 60 MG/DL 37 LDL INTERPRETATION: Low Risk Optimal Level: LDL Less than 100 MG/DL Near or Above Optimal: LDL 100-129 MG/DL Borderline High Risk: LDL 130-159 MG/DL High Risk: LDL 160-189 MG/DL Very High Risk: LDL Greater than 189 MG/DL 38 Anion gap measurement may be of limited value in the presence of any alkalosis, especially in a combined acid base disorder. . 39 Note change in reference range as of 11/14/07. The change was based on recommendations from the [employer]. 40 Please note change in reference range effective 07 . 41 A metabolite of Naproxen, O-desmethylnaproxen, has been shown to interfere with the Jendrassik-Florina method for measuring total bilirubin. Samples from patients who have taken Naproxen have shown spurious elevation in total bilirubin levels. 42 Because ethnic data is not always readily available, this report includes an eGFR for both -Americans and non- Americans. The National Kidney Disease Education Program (NKDEP) does not endorse the use of the MDRD equation for patients that are not between the ages of 18 and 70, are , have extremes of body size, muscle mass, or nutritional status, or are non- or non-. According to the National Kidney Foundation, irrespective of diagnosis, the stage of the disease is based on the level of kidney function: Stage Description GFR(mL/min/1.73 m(2)) 1 Kidney damage with normal or decreased GFR 90 2 Kidney damage with mild decrease in GFR 60-89 3 Moderate decrease in GFR 30-59 4 Severe decrease in GFR 15-29 5 Kidney failure <15 (or dialysis) 43 CHOLESTEROL INTERPRETATION: Desirable: Less than 200 MG/DL Borderline-High Risk: 200-239 MG/DL High-Risk: 240 MG/DL and over 44 HDL INTERPRETATION: Undesirable: High Risk: Less than 40 MG/DL Desirable: Low Risk: Greater than 60 MG/DL 45 LDL INTERPRETATION: Low Risk Optimal Level: LDL Less than 100 MG/DL Near or Above Optimal: LDL 100-129 MG/DL Borderline High Risk: LDL 130-159 MG/DL High Risk: LDL 160-189 MG/DL Very High Risk: LDL Greater than 189 MG/DL 46 * SERUM LEVELS OF PSA MEASURED USING THE [employer] ACCESS HYBRITECH IMMUNOASSAY SHOULD NOT BE INTERPRETED ABSOLUTE EVIDENCE OF THE PRESENCE OR ABSENCE OF DISEASE. THE PSA VALUE SHOULD BE USED IN CONJUNCTION WITH OTHER PERTINENT CLINICAL DIAGNOSTIC PROCEDURES. 47 THERAPEUTIC TARGET FOR THE TREATMENT OF DIABETES MELLITUS PATIENTS IS <7% HBA1C, AND IN SELECTIVE PATIENTS <6.0%. PLEASE REFER TO [employer] DIABETIC CARE GUIDELINES FOR FURTHER INFORMATION. 48 Anion gap measurement may be of limited value in the presence of any alkalosis, especially in a combined acid base disorder. . 49 Note change in reference range as of 11/14/07. The change was based on recommendations from the [employer]. 50 Please note change in reference range effective 07 . 51 Because ethnic data is not always readily available, this report includes an eGFR for both -Americans and non- Americans. The National Kidney Disease Education Program (NKDEP) does not endorse the use of the MDRD equation for patients that are not between the ages of 18 and 70, are , have extremes of body size, muscle mass, or nutritional status, or are non- or non-. According to the National Kidney Foundation, irrespective of diagnosis, the stage of the disease is based on the level of kidney function: Stage Description GFR(mL/min/1.73 m(2)) 1 Kidney damage with normal or decreased GFR 90 2 Kidney damage with mild decrease in GFR 60-89 3 Moderate decrease in GFR 30-59 4 Severe decrease in GFR 15-29 5 Kidney failure <15 (or dialysis) 52 THERAPEUTIC TARGET FOR THE TREATMENT OF DIABETES MELLITUS PATIENTS IS <7% HBA1C, AND IN SELECTIVE PATIENTS <6.0%. PLEASE REFER TO [employer] DIABETIC CARE GUIDELINES FOR FURTHER INFORMATION. 53 FASTING 54 Anion gap measurement may be of limited value in the presence of any alkalosis, especially in a combined acid base disorder. . 55 Note change in reference range as of 11/14/07. The change was based on recommendations from the [employer]. 56 Please note change in reference range effective 07 . 57 CHOLESTEROL INTERPRETATION: Desirable: Less than 200 MG/DL Borderline-High Risk: 200-239 MG/DL High-Risk: 240 MG/DL and over 58 HDL INTERPRETATION: Undesirable: High Risk: Less than 40 MG/DL Desirable: Low Risk: Greater than 60 MG/DL 59 LDL INTERPRETATION: Low Risk Optimal Level: LDL Less than 100 MG/DL Near or Above Optimal: LDL 100-129 MG/DL Borderline High Risk: LDL 130-159 MG/DL High Risk: LDL 160-189 MG/DL Very High Risk: LDL Greater than 189 MG/DL 60 THERAPEUTIC TARGET FOR THE TREATMENT OF DIABETES MELLITUS PATIENTS IS <7% HBA1C, AND IN SELECTIVE PATIENTS <6.0%. PLEASE REFER TO [employer] DIABETIC CARE GUIDELINES FOR FURTHER INFORMATION. 61 * SERUM LEVELS OF PSA MEASURED USING THE [employer] LAURYN ACCESS HYBRITECH IMMUNOASSAY SHOULD NOT BE INTERPRETED ABSOLUTE EVIDENCE OF THE PRESENCE OR ABSENCE OF DISEASE. THE PSA VALUE SHOULD BE USED IN CONJUNCTION WITH OTHER PERTINENT CLINICAL DIAGNOSTIC PROCEDURES. 62 CHOLESTEROL INTERPRETATION: Desirable: Less than 200 MG/DL Borderline-High Risk: 200-239 MG/DL High-Risk: 240 MG/DL and over 63 HDL INTERPRETATION: Undesirable: High Risk: Less than 40 MG/DL Desirable: Low Risk: Greater than 60 MG/DL 64 LDL INTERPRETATION: Low Risk Optimal Level: LDL Less than 100 MG/DL Near or Above Optimal: LDL 100-129 MG/DL Borderline High Risk: LDL 130-159 MG/DL High Risk: LDL 160-189 MG/DL Very High Risk: LDL Greater than 189 MG/DL 65 Anion gap measurement may be of limited value in the presence of any alkalosis, especially in a combined acid base disorder. . 66 Note change in reference range as of 11/14/07. The change was based on recommendations from the [employer]. 67 Please note change in reference range effective 07 . 68 THERAPEUTIC TARGET FOR THE TREATMENT OF DIABETES MELLITUS PATIENTS IS <7% HBA1C, AND IN SELECTIVE PATIENTS <6.0%. PLEASE REFER TO [employer] DIABETIC CARE GUIDELINES FOR FURTHER INFORMATION. 69 PATIENT MAY HAVE RESULTS PER DOCTOR'S AUTHORIZATION. Questions regarding this report should be directed to your doctor. 70 Anion gap measurement may be of limited value in the presence of any alkalosis, especially in a combined acid base disorder. . 71 CHOLESTEROL INTERPRETATION: Desirable: Less than 200 MG/DL Borderline-High Risk: 200-239 MG/DL High-Risk: 240 MG/DL and over 72 HDL INTERPRETATION: Undesirable: High Risk: Less than 40 MG/DL Desirable: Low Risk: Greater than 60 MG/DL 73 LDL INTERPRETATION: Low Risk Optimal Level: LDL Less than 100 MG/DL Near or Above Optimal: LDL 100-129 MG/DL Borderline High Risk: LDL 130-159 MG/DL High Risk: LDL 160-189 MG/DL Very High Risk: LDL Greater than 189 MG/DL 74 * SERUM LEVELS OF PSA MEASURED USING THE MATTI LAURYN ACCESS HYBRITECH IMMUNOASSAY SHOULD NOT BE INTERPRETED ABSOLUTE EVIDENCE OF THE PRESENCE OR ABSENCE OF DISEASE. THE PSA VALUE SHOULD BE USED IN CONJUNCTION WITH OTHER PERTINENT CLINICAL DIAGNOSTIC PROCEDURES. Procedures Date Code Description Status 03/23/2017 63063 Excision Benign Lesion Incl Diameter 1.1 - 2.0 CM Completed Scalp,Neck,Hand 07/14/2013 [id number] Colonoscopy Completed 12/01/2010 53551 Arthroscopy,Knee,Meniscectomy Medial Or Lateral Completed 07/22/2008 94647 EKG Tracing & Interpretation Completed 02/16/2003 [id number] Colonoscopy Completed Encounters Type Date Location Provider Dx Diagnosis Office Visit 03/13/2018 M[facility] Z00.00 Encntr for 10:20a Sherine Delgado M.D. general adult [facility] medical exam w/o abnormal findings I10 Essential (primary) hypertension E78.00 Pure hypercholesterolemia, unspecified R73.01 Impaired fasting glucose Z23 Encounter for immunization Office Visit 02/01/2017 3:00p [facility] [place] Z00.00 Encjessie Santos M.D. general adult [place] medical exam w/o abnormal findings I10 Essential (primary) hypertension E78.00 Pure hypercholesterolemia, unspecified R73.01 Impaired fasting glucose L98.9 Disorder of the skin and subcutaneous tissue, unspecified Office Visit 02/01/2016 3:00p [facility] [place] Z00.00 Sallie Santos M.D. general adult [place] medical exam w/o abnormal findings I10 Essential (primary) hypertension E78.00 Pure hypercholesterolemia, unspecified R73.01 Impaired fasting glucose Office Visit 01/28/2015 3:40p [facility] [place] Z00.00 Encntermelinda Santos M.D. general adult medical exam w/o abnormal findings I10 Essential (primary) hypertension E78.0 Pure hypercholesterolemia R73.01 Impaired fasting glucose Office Visit 01/27/2014 3:00p [facility] Sina [place] V70.0 Examination Sherine Santos M.D. General Medical Routine AT Health Care Facility 401.1 Hypertension Benign 272.0 Hypercholesterolemia Pure 790.21 Impaired Fasting Glucose V04.89 Need For Prophylactic Vaccination & Inoculation Other Virus Office Visit 08/12/2013 1:00p [facility] [place] 787.01 Nausea W/ Vomiting Sherine Santos M.D. Office Visit 05/01/2013 3:40p [facility] Sina [place] 401.1 Hypertension Benign Sherine Santos M.D. 272.0 Hypercholesterolemia Pure 790.21 Impaired Fasting Glucose 465.9 URI Upper Respiratory Infections Acute Unspec Sites V73.89 Screening Examination Viral Diseases Other Spec V76.51 Special Screening For Malignant Neoplasms Colon Office Visit 10/29/2012 3:40p [facility] [place] V70.0 Examination Sherine Santos M.D. General Medical Routine AT Health Care Facility 401.1 Hypertension Benign 272.0 Hypercholesterolemia Pure 790.21 Impaired Fasting Glucose V76.51 Special Screening For Malignant Neoplasms Colon Office Visit 05/01/2012 3:00p [facility] [place] 401.1 Hypertension Benign Sherine Santos M.D. 272.0 Hypercholesterolemia Pure 790.21 Impaired Fasting Glucose Office Visit 10/30/2011 3:40p [facility] [place] V70.0 Examination Sherine Santos M.D. General Medical Routine AT Health Care Facility 401.1 Hypertension Benign 272.0 Hypercholesterolemia Pure 790.21 Impaired Fasting Glucose 477.9 Rhinitis Allergic Cause Unspec Office Visit 05/01/2011 3:40p [facility] Internal [place] 401.1 Hypertension Benign Medicine Monse Santos 272.0 Hypercholesterolemia Pure 790.21 Impaired Fasting Glucose V76.44 Screening For Malig Arthur Prostate Office Visit 11/09/2010 3:15p [facility] Johann Francis, 717.3 Derangement Medial of Mj Shea Meniscus Other & Unspec Office Visit 11/02/2010 3:00p [facility] Johann Francis, 717.3 Derangement Medial of Group Therapist Troy.Brielle Meniscus Other & Unspec Office Visit 10/28/2010 10:20a DO Not Use Group Therapist AT [facility] [place] 401.1 Hypertension Katharine Santos M.D. Benign 272.0 Hypercholesterolemia Pure 790.21 Impaired Fasting Glucose 719.46 Pain Joint Lower Leg V06.1 Eiemdrhlqk-Qfibytu-Shtfssvh Combined (DTaP) Office Visit 02/14/2010 4:00p DO Not Use Group Therapist [facility] [place] 401.1 Hypertension Benign AT Katharine Santos M.D. 272.0 Hypercholesterolemia Pure 790.21 Impaired Fasting Glucose 719.46 Pain Joint Lower Leg Office Visit 07/27/2009 9:00a DO Not Use Group Therapist [place] 401.1 Hypertension Benign AT Katharine Santos M.D. 272.0 Hypercholesterolemia Pure 790.21 Impaired Fasting Glucose Office Visit 01/20/2009 3:45p DO Not Use Group Therapist [place] 401.1 Hypertension Benign AT Katharine Santos M.D. 272.0 Hypercholesterolemia Pure 790.21 Impaired Fasting Glucose Office Visit 07/22/2008 9:00a [facility] Nick[facility] [place] 401.1 Hypertension Benign Assoc AT Monse Santos [facility] V70.0 Examination General Medical Routine AT Health Care Facility Office Visit 01/16/2008 [facility] [place] 272.0 Hypercholesterolemia Pure 3:45p Assoc AT Monse Santos [facility] 401.1 Hypertension Benign 790.21 Impaired Fasting Glucose Office Visit 07/17/2007 9:00a [place] Nickolas [place] V70.0 Examination Assoc AT Monse Santos [facility] Routine AT Health Care Facility 401.1 Hypertension Benign 272.0 Hypercholesterolemia Pure Office Visit 01/15/2007 3:45p [facility] Julian [place] 401.1 Hypertension Benign Assoc AT Sandoval Santos. [facility] 465.9 URI Upper Respiratory Infections Acute Unspec Sites 272.0 Hypercholesterolemia Pure Plan of Treatment Future Appointment(s):03/14/2019 9:20 am - Julian Santos M.D. at [facility] Internal Caixlzsq67/13/2019 - Julian Santos M.D.R21 Rash and other nonspecific skin eruptionComments:Chronic occ skin rash sx previously now with more generalized rash sx over the past few weeks. ? allergic, but no clear precipitating event/exposure. Better with oral steroid/Benadryl Rx. Allergy eval pending later this week; pt was told to hold the meds 72 hrs prior to the appt.
[2018-08-08 15:07] VITALS: BP 124/82
--- NOTE | 2018-08-08 15:30 | ED ---
Skin Complaint - HPI Summary HPI Summary: 63 yr old male with the complaint of tick bite to the left anterior axilla. He removed a tick from the area and is not sure how long it was on him. He has been itching the area some. He doesn't think the tick was engorged. There is some localized erythema around the tick bite. No target lesion. - History of Current Complaint Chief Complaint: UCSkin Time Seen by Provider: 08/08/18 15:13 Stated Complaint: TICK BITE Pain Intensity: 0 - Allergy/Home Medications Allergies/Adverse Reactions: Allergies Allergy/AdvReac Type Severity Reaction Status Date / Time Sulfa (Sulfonamide Allergy Hives Verified 08/08/18 15:02 Antibiotics) PMH/Surg Hx/FS Hx/Imm Hx Cardiovascular History: Reports: Hx Hypertension - Surgical History Surgery Procedure, Year, and Place: knee Infectious Disease History: Yes Infectious Disease History: Reports: Hx Shingles Denies: Traveled Outside the [place] in Last 30 Days - Family History Known Family History: Positive: None, Non-Contributory - Social History Occupation: Retired Alcohol Use: None Substance Use Type: Reports: None Smoking Status (MU): Never Smoked Tobacco Have You Smoked in the Last Year: No Review of Systems Constitutional: Negative Positive: Other - bite to the left anterior axilla All Other Systems Reviewed And Are Negative: Yes Physical Exam Triage Information Reviewed: Yes Vital Signs On Initial Exam: Initial Vitals Temp Pulse Resp BP Pulse Ox 98.2 F 116 16 124/82 97 08/08/18 15:04 08/08/18 15:04 08/08/18 15:04 08/08/18 15:04 08/08/18 15:04 Vital Signs Reviewed: Yes Appearance: Positive: Well-Appearing, No Pain Distress Skin: Positive: Other - tick bite left anterior axilla there is about 1 cm of surrounding erythema. no FB or tick remnant appreciated. Eyes: Positive: EOMI ENT: Positive: Normal ENT inspection Neck: Positive: Nontender Respiratory/Lung Sounds: Positive: Clear to Auscultation, Breath Sounds Present Cardiovascular: Positive: RRR. Negative: Murmur Abdomen Description: Positive: Nontender Musculoskeletal: Positive: Strength/ROM Intact Neurological: Positive: Sensory/Motor Intact, Alert, Oriented to Person Place, Time, CN Intact II-III Psychiatric: Positive: Normal - [place] Coma Scale Best Eye Response: 4 - Spontaneous Best Motor Response: 6 - Obeys Commands Best Verbal Response: 5 - Oriented Coma Scale Total: 15 Diagnostics - Vital Signs Vital Signs Temp Pulse Resp BP Pulse Ox 08/08/18 15:04 98.2 F 116 16 124/82 97 - Laboratory Lab Statement: Any lab studies that have been ordered have been reviewed, and results considered in the medical decision making process. Course/Dx - Course Course Of Treatment: 63 yr old male with tick bite and some erythema. And will rx with doxy due to unknown length of time tick on, but no lyme at this time - Diagnoses Provider Diagnoses: Tick bite Discharge - Sign-Out/Discharge Documenting (check all that apply): Patient Departure All imaging exams completed and their final reports reviewed: No Studies - Discharge Plan Condition: Good Disposition: HOME Prescriptions: Doxycycline Monohydrate 100 mg PO BID #28 capsule Patient Education Materials: Tick Bite (ED) Referrals: Julian Santos MD [Primary Care Provider] - 2 Days - Billing Disposition and Condition Condition: GOOD Disposition: Home
== END 2018-08-08 15:36 | disposition home or self-care (01) ==
LOC: UCCORT 14:45
DX: S40.862A Insect bite (nonvenomous) of left upper arm, initial encounter (principal); I10 Essential (primary) hypertension; W57.XXXA Bitten or stung by nonvenomous insect and other nonvenomous arthropods, initial encounter
CPT/HCPCS: 99212; G0463